=== PATIENT | male | born 1975 | race Caucasian/White ===

== ENCOUNTER 2016-03-08 15:34 | Emergency (ER) | payer SELFPAY | END 2016-03-08 18:40 | disposition home or self-care (01) | LOC: D.ER 15:34 | DX: S16.1XXA Strain of muscle, fascia and tendon at neck level, initial encounter (principal); V49.9XXA Car occupant (driver) (passenger) injured in unspecified traffic accident, initial encounter; Y93.89 Activity, other specified; Y92.410 Unspecified street and highway as the place of occurrence of the external cause; S39.012A Strain of muscle, fascia and tendon of lower back, initial encounter; F17.200 Nicotine dependence, unspecified, uncomplicated ==